=== PATIENT | female | born 1945 | race Caucasian/White ===

== ENCOUNTER 2024-01-01 05:37 | Day surgery (SDC) | payer MEDICARE, BC, OTHER ==
[2023-12-31 11:54] VITALS: BMI 41.1
[~2024-01-01 05:37] MED LIST: EPINEPHrine 0.3 MG in Ophthalmic Irrigation Solution 500 ML IRR SCH
[2024-01-01] MEDS ORDERED: PHENYLephrine 2.5% Ophth Soln 15 ml Bottle ONE (05:53)
[2024-01-01] MEDS ORDERED: Cyclopentolate 1% Opth Drop 2 ML BOT ONE (05:53)
[2024-01-01] MEDS ORDERED: Midazolam HCl 2 mg/2 ml Vial ONE (07:51)
[2024-01-01] MEDS ORDERED: PROPOFOL 20 ML ONE (07:51)
[2024-01-01] MEDS ORDERED: fentaNYL 50 mcg/mL 1 mL Vial ONE (07:51)
[2024-01-01] MEDS ORDERED: Lidocaine 1% PF 5 ML VIAL ONE ×2 (07:52→08:45)
[2024-01-01] MEDS ORDERED: Lidocaine 4% PF 5 ML AMP ONE (08:45)
[2024-01-01] MEDS ORDERED: Triamcinolone 40 MG/ML VIAL ONE (08:45)
[2024-01-01] MEDS ORDERED: Maxitrol 0.1% Opth Oint 3.5 GM TUBE ONE (08:45)
[2024-01-01] MEDS ORDERED: Bupivacaine 0.75% 10 ML VIAL ONE (08:45)
[2024-01-01] MEDS ORDERED: Ondansetron PF 4 MG/2 ML Vial ONE (08:45)
[2024-01-01] MEDS ORDERED: Indocyanine Green 25 MG/10 ML VIAL ONE (08:45)
[2024-01-01] MEDS ORDERED: CEFAZOLIN 1 GM VIAL ONE (08:45)
== END 2024-01-01 10:00 | disposition home or self-care (01) ==
LOC: SDC 05:37
PROVIDERS: ATTEND Ophthalmology Retina Specialist
PROC: 08T43ZZ Resection of Right Vitreous, Percutaneous Approach (ICD-10-PCS; principal; 2024-01-01)
PROC: 08NE3ZZ Release Right Retina, Percutaneous Approach (ICD-10-PCS; 2024-01-01)
DX: H35.371 Puckering of macula, right eye (principal)
CPT/HCPCS: 67042; J0171; J2250; J2704; J3010; J0690; J2405; J3301; J3490